=== PATIENT | male | born 1980 | race Caucasian/White ===

== ENCOUNTER → 2018-05-27 | Outpatient (CLI) | payer BC ==
[~2018-05-27] MED LIST: ESCI5TAB10 PO
[2018-05-27 14:09] LABS: PLATELET COUNT, AUTOMATED 271 K/uL (150-450)
[2018-05-27 14:28] LABS: LDL CHOLESTEROL 135 mg/dl
== END ==
LOC: LAB 13:35
PROVIDERS: ATTEND Emergency Medicine
DX: R53.83 Other fatigue (principal); R74.8 Abnormal levels of other serum enzymes
CPT/HCPCS: 36415; 82040; 82247; 82306; 82310; 82374; 82435; 82465; 82565; 82728; 82947; 83540; 83550; 83718; 84075; 84132; 84155; 84295; 84443; 84450; 84460; 84478; 84520; 85025; 86803

== ENCOUNTER → 2018-06-16 | Outpatient (CLI) | payer BC ==
[~2018-06-16] MED LIST changes: +CHOL100052 PO
--- NOTE | 2018-06-16 08:50 | RADIOLOGY IMAGING REPORT ---
FACILITY: [facility] - [place] PATIENT NAME: Eh Liriano : 1980 MR: [id number] V: [id number] EXAM DATE: ORDERING PHYSICIAN: HAIM BAKER TECHNOLOGIST: Location: [facility] - [place] Patient: Eh Liriano : 1980 Visit/Account:[id number] Date of Sevice: 06/16/2018 LIVER HISTORY: elevated liver enzymes COMPARISON: None. FINDINGS: Gallbladder: Unremarkable; no stones or sludge. Liver: Negative. Common duct: Normal, 2.7 mm diameter. Pancreas: Partially obscured by bowel, visualized aspects unremarkable. Right kidney: Right kidney appears unremarkable measuring 10.8 cm in length Upper abdominal aorta and IVC: Patent. Ascites: None visualized. IMPRESSION: Pancreas is only partially seen due to overlying bowel gas otherwise unremarkable right upper quadran t ultrasound Report Dictated By: Nevaeh Abraham MD at 06/16/2018 8:43 AM Report E-Signed By: Nevaeh Abraham MD at 06/16/2018 8:45 AM WSN:[id number]
== END ==
LOC: US 00:19
PROVIDERS: ATTEND Emergency Medicine
DX: R94.5 Abnormal results of liver function studies (principal)
CPT/HCPCS: 76705

== ENCOUNTER → 2018-11-19 | Outpatient (CLI) | payer BC | LOC: LAB 13:35 | PROVIDERS: ATTEND Urology | DX: Z30.2 Encounter for sterilization (principal) | CPT/HCPCS: 88302 ==